=== PATIENT | female | born 1980 | race Caucasian/White ===

== ENCOUNTER 2019-11-20 20:19 | Emergency (ER) | payer MEDICAID ==
[~2019-11-20] VITALS: Ht 157.5 cm; Wt 76.7 kg
[2019-11-20 20:24] VITALS: Ht 157.5 cm; Wt 76.7 kg
[2019-11-20 23:32] VITALS: BP 104/62
== END 2019-11-20 23:32 | disposition home or self-care (01) ==
LOC: ED 20:19
DX: M54.41 Lumbago with sciatica, right side (principal)
CPT/HCPCS: J1885